=== PATIENT | male | born 1960 | race Caucasian/White ===

== ENCOUNTER 2024-09-27 09:48 | Inpatient (IN) | payer OTHER, MEDICAID ==
[~2024-09-27] VITALS: Ht 175.3 cm; Wt 85.7 kg
--- NOTE | 2024-09-27 10:45 | ED.PDOC ---
History of Present Illness HPI Comments 64-year-old male with PMHx HIV, HTN brought in by EMS presents with a chief complaint of hematoma to right knee s/p fall injury with associated muscle pain. Patient states that he was walking to get a cookie from the kitchen and then "blacked out and fell onto my knees". Patient is now presenting with a hematoma and pain to his right knee. Patient states that he is normally able to walk unassisted. Chief Complaint: Fall Injury Time Seen by MD: 10:20 Primary Care Provider: KIRAN Cordero Notes: Medications, Allergies Allergies: Coded Allergies: Sulfamethoxazole w/Trimethoprim (Verified Allergy, Unknown, 01/25/19) Home Meds Unable to Obtain Active Prescriptions or Reported Meds Information Source: Patient Mode of Arrival: EMS Severity: Moderate Timing: Hours Duration: Since onset Prehospital treatment: Tool Grinding Technician Past Medical History PAST MEDICAL HISTORY: HIV, HTN Surgical History: PTCA Family History Family History: Reviewed,noncontributory to illness Social History Smoker: Non-Smoker Alcohol: Denies ETOH Use Drugs: Denies Drug Use Lives In: Home Constitutional: denies: chills, diaphoresis, fatigue, fever, malaise, sweats, weakness, others EENTM: denies: blurred vision, double vision, ear bleeding, ear discharge, ear drainage, ear pain, ear ringing, eye pain, eye redness, hearing loss, mouth pain, mouth swelling, nasal discharge, nose bleeding, nose congestion, nose pain, photophobia, tearing, throat pain, throat swelling, voice changes, others Respiratory: denies: cough, hemoptysis, orthopnea, SOB at rest, shortness of breath, SOB with excertion, stridor, wheezing, others Cardiovascular: denies: chest pain, dizzy spells, diaphoresis, Dyspnea on exertion, edema, irregular heart beat, left arm pain, lightheadedness, palpitations, PND, syncope, others Gastrointestinal: denies: abdomen distended, abdominal pain, blood streaked bowels, constipated, diarrhea, dysphagia, difficulty swallowing, hematemesis, melena, nausea, poor appetite, poor fluid intake, rectal bleeding, rectal pain, vomiting, others Genitourinary: denies: burning, dysuria, flank pain, frequency, hematuria, incontinence, penile discharge, penile sore, pain, testicle pain, testicle swelling, urgency, others Neurological: denies: dizziness, fainting, headache, left sided numbness, left sided weakness, numbness, paresthesia, pre-existing deficit, right sided numbness, right sided weakness, seizure, speech problems, tingling, tremors, weakness, others Musculoskeletal: reports: muscle pain; denies: back pain, gout, joint pain, joint swelling, muscle stiffness, neck pain, others Integumetry: reports: bruises; denies: change in color, change in hair/nails, dryness, laceration, lesions, lumps, rash, wounds, others Allergic/Immunocompromised: denies: Difficulty Healing, Frequent Infections, Hives, Itching, others Hematologic/Lymphatic: denies: anemia, blood clots, easy bleeding, easy bruising, swollen glands, others Endocrine: denies: excessive hunger, excessive sweating, excessive thirst, excessive urination, flushing, intolerance to cold, intolerance to heat, unexplained weight gain, unexplained weight loss, others Psychiatric: denies: anxiety, bipolar disorder, depression, hopeless, panic disorder, schizophrenia, sleepless, suicidal, others All Other Systems: Reviewed and Negative Physical Exam General Appearance: No Apparent Distress, Normal HEENT: Normal ENT Inspection, Pharynx Normal, TMs Normal Neck: Full Range of Motion, Non-Tender, Normal, Normal Inspection Respiratory: Chest Non-Tender, Lungs Clear, No Accessory Muscle Use, No Respiratory Distress, Normal Breath Sounds Cardiovascular: No Edema, No JVD, No Murmur, No Gallop, Normal Peripheral Pulses, Regular Rate/Rhythm Breast Exam: Deferred Gastrointestinal: No Organomegaly, Non Tender, No Pulsatile Mass, Normal Bowel Sounds, Soft Genitalia: Deferred Pelvic: Deferred Rectal: Deferred Extremities: No calf tenderness, Normal capillary refill, Normal range of motion, No pedal edema, Swelling (RIGHT KNEE WITH HEMATOMA) Musculoskeletal : Apperance: Normal Neurologic: Alert, community health director II-XII nml as Tested, No Motor Deficits, Normal Affect, Normal Mood, No Sensory Deficits Cerebellar Function: Normal Reflexes: Normal Skin: Dry, Normal Color, Warm Lymphatic: No Adenopathy Was a procedure done? Was a procedure done?: No Differential Dx Considerations may include: Differential diagnosis include fracture, dislocation of knee, sprain, strain, contusion, joint effusion, hemarthrosis, neurovascular injuries, compartment syndrome. Patient has significant bleeding of the patella due to a comminuted displaced fracture. However neurovascularly he is intact. I spoke to Orthopedics to consult. Patient will be admitted for pain control bleeding control and orthopedic evaluation. X-Ray, Labs, Meds, VS Vital Signs Date Time Temp Pulse Resp B/P (MAP) Pulse Ox O2 Delivery O2 Flow Rate FiO2 09/27/24 16:00 82 19 122/68 (86) 97 09/27/24 16:00 83 09/27/24 14:00 79 26 141/77 (98) 97 09/27/24 12:54 98.6 92 18 126/76 (93) 99 98.6 09/27/24 12:54 92 18 99 Room Air* 0 21 09/27/24 11:57 98.4 94 16 123/70 (87) 100 98.4 09/27/24 09:52 99.2 101 15 133/82 97 99.2 Lab Test 09/27/24 11:58 09/27/24 11:00 Range/Units Troponin I High Sensitivity 5 5 </=54 ng/L White Blood Count 16.6 H 4.4-10.8 10^3/uL Red Blood Count 3.35 L 4.5-5.90 10^6/uL Hemoglobin 10.5 L 13.5-17.5 g/dL Hematocrit 30.7 L 41.0-53.0 % Mean Corpuscular Volume 91.6 80.0-100.0 fL Mean Corpuscular Hemoglobin 31.4 28.0-32.0 pg Mean Corpuscular Hemoglobin Concent 34.2 32.0-36.0 g/dL Red Cell Distribution Width 14.1 11.8-14.3 % Platelet Count 194 140-450 10^3/uL Mean Platelet Volume 7.9 6.9-10.8 fL Neutrophils (%) (Auto) 69.9 37.0-80.0 % Lymphocytes (%) (Auto) 16.5 10.0-50.0 % Monocytes (%) (Auto) 13.3 H 0.0-12.0 % Eosinophils (%) (Auto) 0.1 0.0-7.0 % Basophils (%) (Auto) 0.2 0.0-2.0 % Neutrophils # (Auto) 11.6 H 1.6-8.6 10 ^3/uL Lymphocytes # (Auto) 2.7 0.4-5.4 10 ^3/uL Monocytes # (Auto) 2.2 H 0-1.3 10 ^3/uL Eosinophils # (Auto) 0 0-0.8 10 ^3/uL Basophils # (Auto) 0 0-0.2 10 ^3/uL Nucleated Red Blood Cells 0.0 % Prothrombin Time 10.6 9.3-11.8 sec Prothrombin Time INR 1.00 0.9-1.15 Activated Partial Thromboplast Time 24.5 24.5-34.5 SEC Sodium Level 136 136-145 mmol/L Potassium Level 4.0 3.5-5.1 mmol/L Chloride Level 105 98-107 mmol/L Carbon Dioxide Level 19 L 20-31 mmol/L Anion Gap 12 5-15 Blood Urea Nitrogen 28 H 9-23 mg/dL Creatinine 1.49 H 0.700-1.30 mg/dL Glomerular Filtration Rate Calc 51 >90 mL/min BUN/Creatinine Ratio 18.8 10.0-20.0 Serum Glucose 154 H 74-106 mg/dL Calcium Level 9.4 8.7-10.4 mg/dL Current Medications Medications (Trade) Dose Ordered Sig/Kaitlin Route Start Time Stop Time Status Last Admin Acetaminophen/ Hydrocodone Bitart ([place] 10/325MG Tab) 1 tab ONCE ONCE PO 09/27/24 11:00 09/27/24 11:01 DC 09/27/24 11:09 Time of 1ST Reevaluation: 10:50 Reevaluation 1ST: Unchanged Patient Education/Counseling: Diagnosis, Treatment, Need For Follow Up Family Education/Counseling: No Family Present Comments i consulted orhto. and hospitalist Additional Information The following tests were ordered, and results were reviewed by me: CBC, CMP, TROPONIN, R KNEE X-RAY, R FEMUR X-RAY Additional Information was gathered from interviewing the following independent historians: EMS/[employer] I reviewed and agreed with the following test results read by other providers: RADIOLOGIST I discussed treatment and results with medical personnel and: PATIENT Comprehensive systems review obtained and negative except for what is stated in the HPI. SEPSIS Sepsis Screen Date sepsis recognized/suspect: Sep 27, 2024 Time Sepsis recognized/suspect: 954 Recent Procedure: No On Antibiotic Therapy: No Respiratory Rate >20: No Heart Rate >90: Yes Temp<36 C (96.8 F) or >38.3 C: No SBP <90 or MAP <65 mmHG: No New Acute Mental Status Change: No Is the patient on CPAP, BIPAP,: No Physician Orders R Femur Xray (09/27/24 10:33) Continuous Ekg Monitoring 08,12,16,20,00,04 (09/27/24 10:33) Electrocardigram (09/27/24 10:33) Chest Xray 1 View (09/27/24 10:33) R Knee 4v Xray (09/27/24 10:33) Ct R Knee Wo Contrast (09/27/24 10:54) Apply Knee Immobilizer (09/27/24 15:35) * Orthopedic Consult (09/27/24 15:35) Vital Signs Date Time Temp Pulse Resp B/P (MAP) Pulse Ox O2 Delivery O2 Flow Rate FiO2 09/27/24 16:00 82 19 122/68 (86) 97 09/27/24 16:00 83 09/27/24 14:00 79 26 141/77 (98) 97 09/27/24 12:54 98.6 92 18 126/76 (93) 99 98.6 09/27/24 12:54 92 18 99 Room Air* 0 21 09/27/24 11:57 98.4 94 16 123/70 (87) 100 98.4 09/27/24 09:52 99.2 101 15 133/82 97 99.2 Laboratory Tests Test 09/27/24 11:00 White Blood Count 16.6 10^3/uL (4.4-10.8) H Medications Medications Dose Ordered Sig/Kaitlin Route Start Time Stop Time Status Last Admin Dose Admin Acetaminophen/ Hydrocodone Bitart 1 tab ONCE ONCE PO 09/27/24 11:00 09/27/24 11:01 DC 09/27/24 11:09 Departure 1 Departure Time of Disposition: 21:11 Impression: Primary Impression: Right patella fracture Qualified Codes: S82.041A - Displaced comminuted fracture of right patella, initial encounter for closed fracture Additional Impression: Hematoma Disposition: ADMITTED INPATIENT Admit to: Med Surg Condition: Stable e-Prescriptions Unable to Obtain Active Prescriptions or Reported Meds Critical Care Note Critical Care Time?: Yes (45 min-critical care time only) Critical care comment: Due to concerns for patients condition deteriorating, the care required my highest level of attention and readiness to intervene. I assessed the patient, reviewed the medical records, ordered the appropriate tests and treatments, then reassessed for results and responsiveness. I communicated with medical personnel and consultants and formulated a plan of care. Total critical care time excludes any procedures Stability Stability form required: No Heart Score Heart Score: Heart Score Response (Comments) Value History N/A 0 EKG N/A 0 Age N/A 0 Risk Factors N/A 0 Troponin N/A 0 Total 0 I personally scribed for TRINI PEREZ MD ([email or web address]) on 09/27/24 at 10:45. Electronically submitted by Chuckie Lawler ([email or web address]). TRINI PEREZ MD Sep 27, 2024 10:45
[2024-09-27] MEDS: HYDROcodone-ACET 10/325MG TAB PO ONE (11:09)
--- NOTE | 2024-09-27 11:19 | DVH ---
CHEST RADIOGRAPH Indication: syncope Technique: Single frontal view of the chest was obtained COMPARISON: None FINDINGS: Lines and Tubes: None Lungs: Clear Pleura: No effusion. No pneumothorax. Cardiomediastinal contours: Unremarkable Bones: Unremarkable IMPRESSION: No acute disease.
--- NOTE | 2024-09-27 11:20 | DVH ---
CLINICAL INDICATION: Pain TECHNIQUE: XY R KNEE 4V XRAY Comparison: None FINDINGS/IMPRESSION: : Comminuted and displaced fracture of the patella. Small joint effusion.
[2024-09-27 11:27] LABS: Hematocrit 30.7 % (41.0-53.0); Hemoglobin 10.5 g/dL (13.5-17.5); Mean Corpuscular Hemoglobin 31.4 pg (28.0-32.0); Mean Corpuscular Volume 91.6 fL (80.0-100.0); Nucleated Red Blood Cells % 0.0 %
[2024-09-27 11:30] LABS: Chloride 105 mmol/L (98-107); Potassium 4.0 mmol/L (3.5-5.1); Sodium 136 mmol/L (136-145)
[2024-09-27 11:31] LABS: Anion Gap 12 (5-15); Calcium 9.4 mg/dL (8.7-10.4)
[2024-09-27 11:34] LABS: Carbon Dioxide 19 mmol/L (20-31)
[2024-09-27 11:36] LABS: BUN/Creatinine Ratio 18.8 (10.0-20.0)
[2024-09-27 11:38] LABS: Blood Urea Nitrogen 28 mg/dL (9-23); Glucose 154 mg/dL (74-106)
[2024-09-27 11:41] LABS: INR 1.0 (0.9-1.15); Partial Thromboplastin Time 24.5 SEC (24.5-34.5); Prothrombin Time 10.6 sec (9.3-11.8)
[2024-09-27 12:54] VITALS: PULSE 92; RESP 18; O2SAT 99
--- NOTE | 2024-09-27 13:41 | DVH ---
EXAM: XY R FEMUR XRAY CLINICAL INDICATION: injury TECHNIQUE: XY R FEMUR XRAY. 3 c Comparison: None FINDINGS/IMPRESSION: Displaced comminuted mid right patellar pole fracture
--- NOTE | 2024-09-27 14:01 | DVH ---
CT CT R KNEE WO CONTRAST INDICATION: fracture EXAM DATE: 09/27/2024 01:15 PM COMPARISON: XY R KNEE 4V XRAY on DOS: 09/27/24 RADIATION DOSE: CTDIvol: 7.75 mGy, DLP: 263.28 mGy*cm PROCEDURE: Helical CT images were obtained of the right knee without intravenous contrast. Sagittal and coronal reconstructions are provided. ADDITIONAL IMAGES: None FINDINGS: BONES: Comminuted and displaced patella fracture with adjacent soft tissue hematoma and small joint e ffusion. JOINT SPACES: Small effusion. SOFT TISSUES: Small prepatellar hematoma. VESSELS: unremarkable. IMPRESSION: Comminuted and displaced patella fracture with adjacent soft tissue hematoma and small joint effusion .
[2024-09-27] MEDS ORDERED: DOCUSATE SOD 100 MG CAP PO PRN (16:30)
[2024-09-27] MEDS ORDERED: ACETAMINOPHEN 325 MG TAB PO PRN (16:30)
--- NOTE | 2024-09-27 16:41 | DVHHP2 ---
Admitting Diagnosis: Right knee pain History of Present Illness 64-year-old male with PMHx HIV, HTN brought in by EMS presents with a chief complaint of hematoma to right knee s/p fall injury with associated muscle pain. Patient states that he was walking to get a cookie from the kitchen and then "blacked out and fell onto my knees". Patient is now presenting with a hematoma and pain to his right knee. Patient states that he is normally able to walk unassisted. PAST MEDICAL HISTORY: HIV, HTN Surgical History: PTCA Family History Family History: Reviewed,noncontributory to illness Social History Smoker: Non-Smoker Alcohol: Denies ETOH Use Drugs: Denies Drug Use Lives In: Home Patient Family History: Patient reports no known family medical history. Allergies: Coded Allergies: Sulfamethoxazole w/Trimethoprim (Verified Allergy, Unknown, 01/25/19) Home Meds Unable to Obtain Active Prescriptions or Reported Meds Current Medications Current Medications Medications (Trade) Dose Ordered Sig/Kaitlin Route PRN Reason Start Time Stop Time Status Last Admin Sodium Chloride (Saline Lock Ns) 10 ml Q8HR IV 09/27/24 22:00 UNV Docusate Sodium (Colace Capsule) 100 mg BIDPRN PRN PO FOR CONSTIPATION 09/27/24 16:30 UNV Acetaminophen (Tylenol Tablet) 650 mg Q6HP PRN PO PAIN SCALE 1-3 OR TEMP>100.4 09/27/24 16:30 UNV Acetaminophen/ Hydrocodone Bitart ([place] 5/325MG Tab) 1 tab Q4HP PRN PO MODERATE PAIN (4-6 PAIN SCALE) 09/27/24 16:30 UNV Hydromorphone HCl (Dilaudid Injection) 0.5 mg Q4HP PRN IV SEVERE PAIN (7-10 PAIN SCALE) 09/27/24 16:30 UNV Cefazolin Sodium 50 ml @ 100 mls/hr Q8HR IV 09/27/24 22:00 UNV Vital Signs Vital Signs Date Time Temp Pulse Resp B/P (MAP) Pulse Ox O2 Delivery O2 Flow Rate FiO2 09/27/24 16:00 82 19 122/68 (86) 97 09/27/24 12:54 98.6 98.6 09/27/24 12:54 Room Air* 0 21 Physical Exam Generally 64 years old male, well nourished well developed. Mild distress HEENT-atraumatic, normocephalic Heart-regular rate and rhythm Lungs clear to auscultate Soft nontender nondistended Musculoskeletal-right knee ecchymosis, pain to tender, axillary stent due to pain. No cyanosis Neuro-AO x3, no focal deficits SEPSIS Sepsis Screen Date sepsis recognized/suspect: Sep 27, 2024 Time Sepsis recognized/suspect: 954 Recent Procedure: No On Antibiotic Therapy: No Respiratory Rate >20: No Heart Rate >90: Yes Temp<36 C (96.8 F) or >38.3 C: No SBP <90 or MAP <65 mmHG: No New Acute Mental Status Change: No Is the patient on CPAP, BIPAP,: No Physician Orders R Femur Xray (09/27/24 10:33) Continuous Ekg Monitoring 08,12,16,20,00,04 (09/27/24 10:33) Electrocardigram (09/27/24 10:33) Chest Xray 1 View (09/27/24 10:33) R Knee 4v Xray (09/27/24 10:33) Ct R Knee Wo Contrast (09/27/24 10:54) Apply Knee Immobilizer (09/27/24 15:35) * Orthopedic Consult (09/27/24 15:35) Lactated Ringer's (09/28/24 00:00) Regular Diet (09/27/24 Dinner) Admit (09/27/24 16:27) Code Status (09/27/24 16:) Vital Signs .PER UNIT PROTOCOL (09/27/24 16:27) Review Orders With Adm.Md (09/27/24 16:27) Encourage Activity As Tolerate (09/27/24 16:27) Sodium Chloride Lock (Saline Lock Ns) (09/27/24 22:00) Docusate Sodium Capsule (Colace Capsule) (09/27/24 16:30) Acetaminophen Tablet (Tylenol Tablet) (09/27/24 16:30) Notify Md Of Changes From Base (09/27/24 16:27) Advance Directive (09/27/24 16:27) Patient Condition (09/27/24 16:27) Allergies (09/27/24 16:27) Hydrocodone-Acet 5/325mg Tab ([place] 5/32 (09/27/24 16:30) Hydromorphone Injection (Dilaudid Inject (09/27/24 16:30) Complete Blood Count (09/28/24 05:00) Complete Blood Count (09/29/24 05:00) Complete Blood Count (09/30/24 05:00) Complete Blood Count (10/01/24 05:00) Complete Blood Count (10/02/24 05:00) Comprehensive Metabolic Panel (09/28/24 05:00) Comprehensive Metabolic Panel (09/29/24 05:00) Comprehensive Metabolic Panel (09/30/24 05:00) Comprehensive Metabolic Panel (10/01/24 05:00) Comprehensive Metabolic Panel (10/02/24 05:00) Cefazolin 1gm/50ml ([place]ce[place]) (09/27/24 22:00) Vital Signs Date Time Temp Pulse Resp B/P (MAP) Pulse Ox O2 Delivery O2 Flow Rate FiO2 09/27/24 16:00 82 19 122/68 (86) 97 09/27/24 14:00 79 26 141/77 (98) 97 09/27/24 12:54 98.6 92 18 126/76 (93) 99 98.6 09/27/24 12:54 92 18 99 Room Air* 0 21 09/27/24 11:57 98.4 94 16 123/70 (87) 100 98.4 09/27/24 09:52 99.2 101 15 133/82 97 99.2 Laboratory Tests Test 09/27/24 11:00 White Blood Count 16.6 10^3/uL (4.4-10.8) H Medications Medications Dose Ordered Sig/Kaitlin Route Start Time Stop Time Status Last Admin Dose Admin Acetaminophen/ Hydrocodone Bitart 1 tab ONCE ONCE PO 09/27/24 11:00 09/27/24 11:01 DC 09/27/24 11:09 Results Labs Test 09/27/24 11:58 09/27/24 11:00 Range/Units Troponin I High Sensitivity 5 </=54 ng/L White Blood Count 16.6 H 4.4-10.8 10^3/uL Red Blood Count 3.35 L 4.5-5.90 10^6/uL Hemoglobin 10.5 L 13.5-17.5 g/dL Hematocrit 30.7 L 41.0-53.0 % Mean Corpuscular Volume 91.6 80.0-100.0 fL Mean Corpuscular Hemoglobin 31.4 28.0-32.0 pg Mean Corpuscular Hemoglobin Concent 34.2 32.0-36.0 g/dL Red Cell Distribution Width 14.1 11.8-14.3 % Platelet Count 194 140-450 10^3/uL Mean Platelet Volume 7.9 6.9-10.8 fL Neutrophils (%) (Auto) 69.9 37.0-80.0 % Lymphocytes (%) (Auto) 16.5 10.0-50.0 % Monocytes (%) (Auto) 13.3 H 0.0-12.0 % Eosinophils (%) (Auto) 0.1 0.0-7.0 % Basophils (%) (Auto) 0.2 0.0-2.0 % Neutrophils # (Auto) 11.6 H 1.6-8.6 10 ^3/uL Lymphocytes # (Auto) 2.7 0.4-5.4 10 ^3/uL Monocytes # (Auto) 2.2 H 0-1.3 10 ^3/uL Eosinophils # (Auto) 0 0-0.8 10 ^3/uL Basophils # (Auto) 0 0-0.2 10 ^3/uL Nucleated Red Blood Cells 0.0 % Prothrombin Time 10.6 9.3-11.8 sec Prothrombin Time INR 1.00 0.9-1.15 Activated Partial Thromboplast Time 24.5 24.5-34.5 SEC Sodium Level 136 136-145 mmol/L Potassium Level 4.0 3.5-5.1 mmol/L Chloride Level 105 98-107 mmol/L Carbon Dioxide Level 19 L 20-31 mmol/L Anion Gap 12 5-15 Blood Urea Nitrogen 28 H 9-23 mg/dL Creatinine 1.49 H 0.700-1.30 mg/dL Glomerular Filtration Rate Calc 51 >90 mL/min BUN/Creatinine Ratio 18.8 10.0-20.0 Serum Glucose 154 H 74-106 mg/dL Calcium Level 9.4 8.7-10.4 mg/dL Primary Diagnosis Fall mechanical, Right knee fracture Normocytic anemia CHIDI on CKD Leukocytosis likely reactive Plan Ancef 1 g q.8h for possible infection and possible procedure Orthopedic surgery consult in ED pending procedure NPO after midnight IV fluids Trend renal function Trend WBC PPI for GI prophylaxis Full code SCD for DVT prophylaxis Plan discussed with: Patient Problems List: (1) Right patella fracture Status: Acute Date of Service: Sep 27, 2024 Billing Provider: CIRA BEASLEY MD Common Visit Codes: 39361-[id number] INP/OBS CARE (HIGH) CIRA BEASLEY MD Sep 27, 2024 16:41
--- NOTE | 2024-09-27 19:35 | DVHINCON2 ---
Consult Note Consult Consult Note history of Present Illness: The patient is a 64-year-old male who presented to the emergency room after sustaining a ground-level fall with direct impact to his right knee. He reports that he was walking to the kitchen to get a cookie when he suddenly blacked out and fell. The patient has been experiencing extensive swelling and hematoma formation over the right knee since the fall. He denies numbness, tingling, or open wounds. Pain is worsened with weight-bearing and knee movement. Past medical history is significant for HIV (on treatment) and hypertension (on medication). --- Exam: Inspection: Extensive swelling and hematoma over the anterior right knee. Skin intact, no open wounds. Palpation: Tenderness to palpation over the patella. Hematoma is fluctuant. Range of Motion: Pain with both active and passive motion, limited due to swelling. Special Tests : Positive patellar compression test (pain with compression). Positive direct palpation tenderness over the patella. Pain with straight leg raise, unable to perform against resistance due to pain. Extensor mechanism weakness due to pain. Neurovascular: Intact sensation and motor function in right lower extremity. Distal pulses palpable and intact. --- Imaging: right knee: Comminuted and displaced patella fracture with adjacent soft tissue hematoma and small joint effusion. --- Assessment: 1. Right knee traumatic hematoma . 2. right patella fracture, 3. Fall with syncope 4. History of HIV on treatment . 5. Hypertension . --- Plan: ER has admitted patient for pain control and further eval Ortho recs for right knee patella fracture: Plan to take patient for surgery if knee swelling improves by wednesday09/29/2024, Place order for NPO Midnight for surgery on 09/29/2024 Place order for obtain consent Open reduction internal fixation right knee patella fracture patient to be cleared by ID for hx of HIV CARDIAC CLEARANCE Apply straight leg immobilization (knee immobilizer in extension). Knee brace to be placed by pulmonology technician Bjorn by tomorrow morning. Once brace is placed, patient may ambulate with weight-bearing as tolerated. Monitor swelling and hematoma. If swelling does not improve, will consider orthopedic clinic follow-up for possible aspiration or further intervention. Continue home HIV and antihypertensive medications per primary team. Ice and elevation of right knee recommended. Please contact Ortho for any further questions or concerns Plan discussed with: Patient, Other (bedside nurse) Visit Coding Surgery Date of Service if different f: Sep 27, 2024 Billing Provider: MARCIA VELASQUEZ Surgery Visit Codes: 30813 - INP CONSULT <55 MIN MARCIA VELASQUEZ Sep 27, 2024 19:35
[2024-09-27 20:48] VITALS: BP 123/73; PULSE 94; RESP 20; TEMP 98.8; O2SAT 96; O2SAT 97
[2024-09-27 20:55] VITALS: BP 123/73; PULSE 94; RESP 20; TEMP 98.8; O2SAT 96
[2024-09-27] MEDS: SODIUM CHLOR 0.9% PF (SALINE LOCK) 10ML VIAL/SYR IV SCH (22:18)
[2024-09-27] MEDS: ceFAZolin 1GM/50ML 50 ML IV SCH (22:18)
[2024-09-28] VITALS (7 sets, daily range): BP systolic 98–131; BP diastolic 59–68; PULSE 89–105; RESP 16–20; TEMP 97.6–99.2; O2SAT 96–99
[2024-09-28] MEDS: LACTATED RINGER'S 1,000 ML IV ONE
[2024-09-28 08:17] LABS: Alanine Aminotransferase 20 U/L (7-40); Alkaline Phosphatase 67 U/L (46-116); Anion Gap 11 (5-15); BUN/Creatinine Ratio 25.0 (10.0-20.0); Calcium 8.9 mg/dL (8.7-10.4); Carbon Dioxide 20 mmol/L (20-31); Chloride 106 mmol/L (98-107); Potassium 4.1 mmol/L (3.5-5.1); Sodium 137 mmol/L (136-145); Total Protein 6.1 g/dL (5.7-8.2)
[2024-09-28 08:18] LABS: Albumin 4.0 g/dL (3.2-4.8); Bilirubin, Total 0.6 mg/dL (0.2-1.0)
[2024-09-28 08:25] LABS: Blood Urea Nitrogen 25 mg/dL (9-23); Glucose 115 mg/dL (74-106)
[2024-09-28 08:27] LABS: Hematocrit 27.7 % (41.0-53.0); Hemoglobin 9.3 g/dL (13.5-17.5); Mean Corpuscular Hemoglobin 30.6 pg (28.0-32.0); Mean Corpuscular Volume 91.2 fL (80.0-100.0); Nucleated Red Blood Cells % 0.1 %
--- NOTE | 2024-09-28 08:29 | ECG ---
[facility] Test Date: 2024-09-28 Test Time: 08:26:49 Pat Name: ANA CRISTINA GODFREY Department: Room: 0291 B Gender: M Flag Signalman: MANASA : 1960 Requested By: CIRA BEASLEY Order Number: [id number] Reading MD: Avila Jay Measurements Intervals [place] Rate: 85 P: 48 AR: 147 QRS: 68 QRSD: 91 T: 60 QT: 361 QTc: 430 Interpretive Statements Sinus rhythm Low voltage, precordial leads Electronically Signed On 10-03-2024 13:17:02 PDT by Avila Jay Please click the below link to view image of tracing.
--- NOTE | 2024-09-28 10:22 | DVHINCON2 ---
Date Seen: Sep 28, 2024 Referring Physician MD Adelso Reason for Consultation Cardiac risk stratification History of Present Illness This is a 64-year-old male patient who presents to emergency room status post mechanical fall at home. Cardiology has been consulted at this time for cardiac risk stratification. Imaging has revealed a displaced comminuted mid right patellar pole fracture. Initial twelve lead electrocardiogram reveals normal sinus rhythm without any significant ST segment changes. The patient denies any cardiac symptoms such as chest pain, shortness of breath, or palpitations. Troponin levels have been negative. Significant past medical history includes coronary artery disease status post PTCA x 2 ALFONSO (on ASA), hypertension, dyslipidemia, and HIV. 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 Past Medical History Past medical history reviewed. No other significant than mentioned above. Past Surgical History PTCA times two ALFONSO approximately five years ago Family History: Patient reports no known family medical history. Family History Family history reviewed. Social History Patient has a five pack-year history, quit smoking approximately 30 years ago Denies illicit drug use Denies any alcohol use Allergies: Coded Allergies: Sulfamethoxazole w/Trimethoprim (Verified Allergy, Unknown, 01/25/19) Home Meds Unable to Obtain Active Prescriptions or Reported Meds Home Meds Home medications reviewed. Current Medications Current Medications Medications (Trade) Dose Ordered Sig/Kaitlin Route PRN Reason Start Time Stop Time Status Last Admin Sodium Chloride (Saline Lock Ns) 10 ml Q8HR IV 09/27/24 22:00 09/28/24 05:45 Docusate Sodium (Colace Capsule) 100 mg BIDPRN PRN PO FOR CONSTIPATION 09/27/24 16:30 Acetaminophen (Tylenol Tablet) 650 mg Q6HP PRN PO PAIN SCALE 1-3 OR TEMP>100.4 09/27/24 16:30 Acetaminophen/ Hydrocodone Bitart ([place] 5/325MG Tab) 1 tab Q4HP PRN PO MODERATE PAIN (4-6 PAIN SCALE) 09/27/24 16:30 Hydromorphone HCl (Dilaudid Injection) 0.5 mg Q4HP PRN IV SEVERE PAIN (7-10 PAIN SCALE) 09/27/24 16:30 Cefazolin Sodium 50 ml @ 100 mls/hr Q8HR IV 09/27/24 22:00 09/28/24 05:34 Review of Systems Constitutional: No symptom reported Ears, Nose, & Throat: No symptom reported Eyes: No symptom reported Neurological: No symptoms reported Pulmonary/Respiratory: No symptoms reported Cardiovascular: No symptom reported Gastrointestinal: No symptom reported Genitourinary: No symptom reported Musculoskeletal: Bilateral knee pain Skin: No symptom reported Psychiatric: No symptom reported Endocrine: No symptom reported Hematologic/Lymphatic: No symptom reported Vital Signs Vital Signs Date Time Temp Pulse Resp B/P (MAP) Pulse Ox O2 Delivery O2 Flow Rate FiO2 09/28/24 08:00 89 18 99 Room Air* 0 21 09/28/24 05:00 98.2 101/65 (77) 98.2 Physical Exam General Appearance: Cooperative. Well-developed. Well-nourished. No acute distress. Pulmonary/Respiratory: Clear, bilateral breaths sounds. Cardiovascular/Chest: Regular rate and rhythm. Peripheral Pulses: 2+ Radial (R). 2+ Radial (L). 2+ Pedal (R). 2+ Pedal (L) Abdominal Exam: Normal bowel sounds. Ankle Exam: Negative ankle edema Lower extremities: Negative lower extremity edema Neuro/Mental Status: A/OX4, coherent. Thoughts/Psych: Normal thought pattern. Appropriate mood and affect. Good judgment and insight. Appearance: No acute distress. Skin Exam: Right knee ecchymosis. Skin warm and dry Labs/Diagnostic Data Labs Test 09/28/24 07:04 09/27/24 11:58 09/27/24 11:00 Range/Units White Blood Count 9.0 # 4.4-10.8 10^3/uL Red Blood Count 3.04 L 4.5-5.90 10^6/uL Hemoglobin 9.3 L 13.5-17.5 g/dL Hematocrit 27.7 L 41.0-53.0 % Mean Corpuscular Volume 91.2 80.0-100.0 fL Mean Corpuscular Hemoglobin 30.6 28.0-32.0 pg Mean Corpuscular Hemoglobin Concent 33.5 32.0-36.0 g/dL Red Cell Distribution Width 14.2 11.8-14.3 % Platelet Count 176 140-450 10^3/uL Mean Platelet Volume 7.9 6.9-10.8 fL Neutrophils (%) (Auto) 65.5 37.0-80.0 % Lymphocytes (%) (Auto) 19.0 10.0-50.0 % Monocytes (%) (Auto) 14.0 H 0.0-12.0 % Eosinophils (%) (Auto) 0.9 0.0-7.0 % Basophils (%) (Auto) 0.6 0.0-2.0 % Neutrophils # (Auto) 5.9 1.6-8.6 10 ^3/uL Lymphocytes # (Auto) 1.7 0.4-5.4 10 ^3/uL Monocytes # (Auto) 1.3 0-1.3 10 ^3/uL Eosinophils # (Auto) 0.1 0-0.8 10 ^3/uL Basophils # (Auto) 0.1 0-0.2 10 ^3/uL Nucleated Red Blood Cells 0.1 % Sodium Level 137 136-145 mmol/L Potassium Level 4.1 3.5-5.1 mmol/L Chloride Level 106 98-107 mmol/L Carbon Dioxide Level 20 20-31 mmol/L Anion Gap 11 5-15 Blood Urea Nitrogen 25 H 9-23 mg/dL Creatinine 1.00 0.700-1.30 mg/dL Glomerular Filtration Rate Calc 83 >90 mL/min BUN/Creatinine Ratio 25.0 H 10.0-20.0 Serum Glucose 115 H 74-106 mg/dL Calcium Level 8.9 8.7-10.4 mg/dL Total Bilirubin 0.6 0.2-1.0 mg/dL Aspartate Amino Transferase (AST) 59 H 13-40 U/L Alanine Aminotransferase (ALT) 20 7-40 U/L Alkaline Phosphatase 67 46-116 U/L Total Protein 6.1 5.7-8.2 g/dL Albumin 4.0 3.2-4.8 g/dL Troponin I High Sensitivity 5 </=54 ng/L Prothrombin Time 10.6 9.3-11.8 sec Prothrombin Time INR 1.00 0.9-1.15 Activated Partial Thromboplast Time 24.5 24.5-34.5 SEC Assessment Preprocedural cardiovascular examination Acute right patellar pole fracture Coronary artery disease status post PTCA x 2 ALFONSO (on ASA) Hypertension Dyslipidemia HIV Plan/Recommendation We will continue with the following plan/recommendations (Dr. Lowe): Transthoracic echocardiogram reveals an EF of 60% with normal valves. A chest x-ray done on this admission reveals no acute disease. Revised Cardiac Risk Index (Adelso criteria): 1 point (1.1% risk of major cardiac event). The patient has no underlying history of congestive heart failure. He does mention a history of coronary artery disease in which he has two drug-eluting stents (placed over 5 years ago per patient). He should continue with single antiplatelet therapy and lipid-lowering agent. Prior to this admission, the patient reports a good functional capacity. Per Cardiology standpoint, the patient is at an acceptable risk for moderate risk surgery. There is no additional cardiac workup indicated prior to surgery. Thank you for allowing us to care for this patient. Please call with any questions or concerns. Critical care time spent: 44 minutes This medical document was created using an electronic medical record system with voice recognition software and computerized dictation system. Although this document has been carefully reviewed, there might still be some phonetic and typographical errors. Occasional wrong-word or ``sound-alike substitutions may have occurred due to the inherent limitations of voice recognition software. These areas are purely typographical due to imperfections of the software programs and do not reflect any compromise in the patient's medical care. Please read the chart carefully and recognize, using context, where these substitutions have occurred. Plan discussed with: Patient NYHA Physical activity limitations: NA Date of Service: Sep 28, 2024 Billing Provider: SAMIR FAN Cardiology Common Codes: 33725-[id number] INP/OBS CARE (High) Cardiology Consultation Codes: 11056-[id number] CONSULT <45MIN SAMIR FAN Sep 28, 2024 10:22
[2024-09-28] MEDS: HYDROcodone-ACET 5/325MG TAB PO PRN (11:19)
--- NOTE | 2024-09-28 15:56 | DVHSR ---
APPROVED REPORT EXAM: Two-dimensional and M-mode echocardiogram with Doppler and color Doppler. Blood Pressure: 101/65 mmHg INDICATION Eval cardiac function RISK FACTORS Height: 69, Weight: 191 DIMENSIONS LVDd (3.8-5.7cm)LA (2D)4.3 (1.9-4.0cm)Aortic Root3.6 (2.0-3.7cm) LVDs (2.5-4.0cm)LA (MM) (1.9-4.0cm)Aortic Cusp Exc2.0 (1.5-2.0cm) EF (%) 73.0 (55-70%)Rt. Atrium5.2 (1.9-4.0cm)Asc. Aorta cm Mitral Valve MitralMitral Stenosis E wave0.78m/sMV Mean GR.mmHg A wave0.70m/sMV Peak GR.mmHg E/A ratio1.12D MVAcm2 DECEL [id number] 1/2 [id number] IVRTmsDop MVA4.75cm2 Aortic Valve Aortic ValveAortic Stenosis V11.22m/Penelope Mean GR.4mmHg V21.36m/Penelope Peak GR.7mmHg LVOT Diameter2.3 (1.8-2.4cm)Doppler AVA3.73cm2 Tricuspid Valve TR Velocity2.66m/s [id number] Other Information Technically limited study due to body habitus and patient position. Patient was laying flat on his b ack during study. Conclusion Technically good study. Difficult acoustic windows. Off axis views. Aortic root enlargement. Left atrial enlargement with concentric LVH. Valves are normal. EF of 60% with normal RV function. Dopplers unremarkable. No pericardial effusion masses or vegetations.
--- NOTE | 2024-09-28 18:54 | DVHINCON2 ---
Date of service: Sep 28, 2024 Family History: Patient reports no known family medical history. Allergies: Coded Allergies: Sulfamethoxazole w/Trimethoprim (Verified Allergy, Unknown, 01/25/19) Home Meds Unable to Obtain Active Prescriptions or Reported Meds Current Medications Current Medications Medications (Trade) Dose Ordered Sig/Kaitlin Route PRN Reason Start Time Stop Time Status Last Admin Sodium Chloride (Saline Lock Ns) 10 ml Q8HR IV 09/27/24 22:00 09/28/24 14:00 Cefazolin Sodium 50 ml @ 100 mls/hr Q8HR IV 09/27/24 22:00 09/28/24 14:00 Atorvastatin Calcium (Lipitor) 40 mg HS PO 09/28/24 22:00 Vital Signs Vital Signs Date Time Temp Pulse Resp B/P (MAP) Pulse Ox O2 Delivery O2 Flow Rate FiO2 09/28/24 17:00 97.9 105 17 120/67 (84) 98 97.9 09/28/24 08:00 Room Air* 0 21 Labs/Diagnostic Data Labs Test 09/28/24 07:04 09/27/24 11:58 09/27/24 11:00 Range/Units White Blood Count 9.0 # 4.4-10.8 10^3/uL Red Blood Count 3.04 L 4.5-5.90 10^6/uL Hemoglobin 9.3 L 13.5-17.5 g/dL Hematocrit 27.7 L 41.0-53.0 % Mean Corpuscular Volume 91.2 80.0-100.0 fL Mean Corpuscular Hemoglobin 30.6 28.0-32.0 pg Mean Corpuscular Hemoglobin Concent 33.5 32.0-36.0 g/dL Red Cell Distribution Width 14.2 11.8-14.3 % Platelet Count 176 140-450 10^3/uL Mean Platelet Volume 7.9 6.9-10.8 fL Neutrophils (%) (Auto) 65.5 37.0-80.0 % Lymphocytes (%) (Auto) 19.0 10.0-50.0 % Monocytes (%) (Auto) 14.0 H 0.0-12.0 % Eosinophils (%) (Auto) 0.9 0.0-7.0 % Basophils (%) (Auto) 0.6 0.0-2.0 % Neutrophils # (Auto) 5.9 1.6-8.6 10 ^3/uL Lymphocytes # (Auto) 1.7 0.4-5.4 10 ^3/uL Monocytes # (Auto) 1.3 0-1.3 10 ^3/uL Eosinophils # (Auto) 0.1 0-0.8 10 ^3/uL Basophils # (Auto) 0.1 0-0.2 10 ^3/uL Nucleated Red Blood Cells 0.1 % Sodium Level 137 136-145 mmol/L Potassium Level 4.1 3.5-5.1 mmol/L Chloride Level 106 98-107 mmol/L Carbon Dioxide Level 20 20-31 mmol/L Anion Gap 11 5-15 Blood Urea Nitrogen 25 H 9-23 mg/dL Creatinine 1.00 0.700-1.30 mg/dL Glomerular Filtration Rate Calc 83 >90 mL/min BUN/Creatinine Ratio 25.0 H 10.0-20.0 Serum Glucose 115 H 74-106 mg/dL Calcium Level 8.9 8.7-10.4 mg/dL Total Bilirubin 0.6 0.2-1.0 mg/dL Aspartate Amino Transferase (AST) 59 H 13-40 U/L Alanine Aminotransferase (ALT) 20 7-40 U/L Alkaline Phosphatase 67 46-116 U/L Total Protein 6.1 5.7-8.2 g/dL Albumin 4.0 3.2-4.8 g/dL Troponin I High Sensitivity 5 </=54 ng/L Prothrombin Time 10.6 9.3-11.8 sec Prothrombin Time INR 1.00 0.9-1.15 Activated Partial Thromboplast Time 24.5 24.5-34.5 SEC Problems(with codes): (1) HIV (human immunodeficiency virus infection) (2) NSTEMI (non-ST elevated myocardial infarction) (3) Obesity (4) Hematoma (5) Right patella fracture Plan/Recommendation ASSESSMENT AND PLAN: ID Problem List: \-- HIV \-- Hypertension \-- Right knee hematoma, status post fall with associated muscle pain and syncope \-- History of percutaneous coronary artery intervention Assessment This is a 64 y.o. male with a past medical history significant for HIV and hypertension, presenting with a right knee hematoma after a fall. He reports muscle pain and syncope at the time of the event, etiology of syncope unclear. Patient denies IV drug use; negative tobacco and alcohol history. He is allergic to Bactrim. Labs notable for leukocytosis (WBC 16.6), hemoglobin 10.5, platelet count 194. Sodium and other labs as reviewed, with creatinine 1.49 and BUN 28. Awaiting further hepatitis C and B testing (antigen/antibody). External labs confirm HIV medication compliance (Odefsey), and recent evaluation by his outpatient HIV provider, Dr. Vicki Craft, shows adequate immune function, not prohibitive for surgery. Awaiting 24-hour records acquisition from HIV provider to finalize clearance. Patient may continue Odefsey while inpatient unless NPO pre-/post-operatively; continue other home medications. Plan: \-- Continue Odefsey while inpatient, hold if NPO for surgery as indicated \-- Continue home medications: metoprolol, venlafaxine, rosuvastatin, [place], hydromorphone as prescribed \-- Infectious disease clearance conditionally pending receipt of HIV provider records (within 24 hours); confirm adequate immune function for alexi-procedural management \-- Await hepatitis B/C testing results \-- Monitor right knee hematoma and observe for signs of infection or expansion \-- Recommend ongoing outpatient HIV care with Dr. Craft post-discharge Isolation Precautions: standard \*Assessment and plan was discussed with the patient as written above \*Plan is subject to change pending incorporation of new incoming information/diagnostics. Updates may be added as addendum at the bottom (OR TOP) of this note Thank you for interesting consult. ID will continue to follow. Please contact Infectious disease for any questions or concerns. Conner Perez M.D. [facility] Ph: ? Teams text: [email or web address] Electronically signed by: Conner Perez MD, 09/28/2024 \ History: The patient's chart and medications were reviewed in detail and the patient was seen and examined. History obtained from: patient Mr. Dickerson is a 64 y.o. male with a history of HIV, hypertension, and prior percutaneous coronary artery intervention, presenting after a mechanical fall resulting in right knee hematoma and muscle pain. He reports a blackout event with fall onto knees, etiology of syncope unknown. Denies tobacco, alcohol, and IV drug use. Home medications include Odefsey, metoprolol, venlafaxine, rosuvastatin, [place], and hydromorphone. Last Odefsey refill in May. Compliance confirmed on external labs; followed as outpatient by Dr. Vicki Craft. Review of Systems: A complete 10 system review of systems was completed and negative except as noted in the HPI or here. ROS: -CONSTITUTIONAL: Denies weight loss, fever, and chills. -HEENT: Denies changes in vision and hearing. -RESPIRATORY: Denies shortness of breath and cough. -CV: Denies palpitations and chest pain. -GI: Denies abdominal pain, nausea, vomiting, and diarrhea. -: Denies dysuria and urinary frequency. -MSK: Reports right knee pain and hematoma after fall. Denies other myalgia or j oint pain. -SKIN: Denies rash and pruritus. -NEUROLOGICAL: Denies headache and syncope since presenting event. -PSYCHIATRIC: Denies recent changes in mood, anxiety, or depression. Past Medical History: HIV Hypertension History of percutaneous coronary artery intervention Past Surgical History: History reviewed. No additional pertinent surgical history provided. Home Medications: Prior to Admission medications Medication Sig Odefsey (emtricitabine/rilpivirine/tenofovir alafenamide) dose and frequency per home regimen Metoprolol as prescribed Venlafaxine as prescribed Rosuvastatin as prescribed [place] (hydrocodone-acetaminophen) as prescribed Hydromorphone as prescribed Allergies: Allergic to Bactrim (sulfamethoxazole/trimethoprim) Family History: Not provided in transcript. Family Status: Not provided in transcript. Social History: Tobacco Use: Denies Alcohol Use: Denies IV Drug Use: Denies Other substances: Not discussed Sexual Activity: Not discussed Socioeconomic history: Not discussed Social Determinants of Health: Not provided in transcript. Objective: Vital Signs on Arrival: Temp: 96.8 F BP: 122/68 Pulse: 82 Resp: 19 SpO2: 97% on room air Most Recent Vital Signs: Not further specified in transcript Admission Weight: Not provided Physical Exam: General: NAD Neck: Supple. No masses. HEENT: PERRL. Normal lids and conjunctiva. Moist mucous membranes. Oropharynx without lesions, exudates or excessive erythema. Normal appearance of the external aspects of the nose and ears. Heart: Regular rhythm, normal rate. No murmur. No lower extremity edema. Lungs: Normal respiratory effort. Clear to auscultation bilaterally. No wheezes. No crackles. Abdomen: Soft. Non-tender. Non-distended. No masses or abdominal hernia. Msk: Right knee: Ecchymosis and tenderness present, status post fall. No digital cyanosis. Normal strength and tone in all 4 limbs. Skin: Warm and dry, no rashes. Neuro: Alert. No facial droop or slurred speech. Extra-ocular movements intact. Sensation intact to soft touch in all 4 limbs. Psych: Appropriate mood. Full affect. Oriented to person, place, time, and situation. Lines: Not specified in transcript. Diagnostic Studies: Available diagnostic studies were reviewed personally. Significant relevant results and findings are outlined below or addressed in the Assessment and Plan above. Pertinent Laboratory Studies: WBC: 16.6 Hemoglobin: 10.5 Platelets: 194 Creatinine: 1.49 BUN: 28 Imaging: Not provided in transcript. Awaiting hepatitis B and C testing. Electronically signed by: Conner Perez MD, 09/28/2024 Plan discussed with: Patient CONNER PEREZ MD Sep 28, 2024 18:54
--- NOTE | 2024-09-28 19:28 | DVH ---
EXAM: XY L KNEE 2V XRAY HISTORY: fall trauma and swelline of the left knee COMPARISON: CT CT R KNEE WO CONTRAST on DOS: 09/27/24, XY R KNEE 4V XRAY on DOS: 09/27/24 TECHNIQUE: AP and lateral views of the left knee were performed. FINDINGS: The bones are demineralized. There is minimally displaced fracture involving the lateral femoral condyle. Moderate joint effusion . Soft tissue swelling. IMPRESSION: 1. Acute lateral femoral condyle fracture
--- NOTE | 2024-09-28 19:32 | DVHPNRES ---
Progress Note Date Seen: Sep 28, 2024 Resident Creating Document: KRISTINE TIMMONS Medical Necessity Reason Pt with a Central, PICC or Fol: No Subjective Review of Systems 64-year-old male patient with history of hypertension and HIV presented to the hospital with complaints of pain and swelling and bruising in the right knee and swelling in the left knee. Patient says he was at his home the when he suddenly felt his legs gave up and he fell down on the floor. He had a loss of consciousness post 2 seconds according to the patient. The patient could not stand up or get to his phone for 2 days and was found in his home on the floor. On admission x-ray and CT was done on the right knee which showed comminuted displaced patellar fracture. EKG showed sinus rhythm. Patient is scheduled for surgery by Orthopedics tomorrow PMHx:hypertension and HIV Social history: 5 pack-year smoking history, denies alcohol or drug abuse Allergic history: Sulfamethoxazole trimethoprim General: patient denies fever, fatigue, weaknes, sweating, any recent changes in appetite and weight HEENT: No headaches, visiual changes, hearing loss, tinnitus, nasal congestion and discharge, and sore throat. Cardiovascular: Denies chest pain, palpitations, dyspnea on exertion, orthopnea, or claudication. Respiratory: No cough, and wheezing. Gastrointestinal: Denies nausea, vomiting, dysphagia, odynophagia, heartburn, abdominal pain, flatulence, bloating, diarrhea, constipation, change in stool, or blood in stool. Genitourinary: No dysuria, hematuria, discharge, frequency, urgency, nocturia, incontinence, and urinary retention. Endocrine: No heat or cold intolerance, polydipsia, polyuria, and polyphagia. Neurological: No dizziness, extremity weakness and numbness, tremors, gait disturbance, seizures, and memory impairment. Psychiatric: Denies depression, anxiety,or insomnia. Musculoskeletal: Mild pain on her right knee. Inability to stay on feet Skin: No rashes, itching, skin lesion, changes in hair, nail, skin texture and breast. Hematologic/Lymphatic: Denies easy bruising, bleeding tendencies, or lymph node enlargement. Objective vital signs Vital Sign Date Time Temp Pulse Resp B/P (MAP) Pulse Ox O2 Delivery O2 Flow Rate FiO2 09/28/24 17:00 97.9 105 17 120/67 (84) 98 97.9 8/21/25 08:00 Room Air* 0 21 Total Intake and Output 09/27/24 09/27/24 09/28/24 15:00 23:00 07:00 Intake Total 50 ml 575 ml Output Total 800 ml Balance 50 ml -225 ml medications Current Medications Medications Dose Ordered Sig/Kaitlin Route Start Time Stop Time Status Last Admin Dose Admin Sodium Chloride 10 ml Q8HR IV 09/27/24 22:00 09/28/24 14:00 10 ML Docusate Sodium 100 mg BIDPRN PRN PO 09/27/24 16:30 Acetaminophen 650 mg Q6HP PRN PO 09/27/24 16:30 Acetaminophen/ Hydrocodone Bitart 1 tab Q4HP PRN PO 09/27/24 16:30 09/28/24 11:19 1 TAB Hydromorphone HCl 0.5 mg Q4HP PRN IV 09/27/24 16:30 Cefazolin Sodium 50 ml @ 100 mls/hr Q8HR IV 09/27/24 22:00 09/28/24 14:00 100 MLS/HR Atorvastatin Calcium 40 mg HS PO 09/28/24 22:00 Examination General Appearance: Alert, Oriented X3, Cooperative, No acute distress HEENT: Atraumatic, PERRLA, EOMI, Mucous membrane moist/pink Respiratory: Clear to auscultation, Normal air movement Cardiovascular: Regular rate, Normal S1, Normal S2, No murmurs, no chest wall tenderness Abdominal: Normal bowel sounds, Soft, No tenderness, No hepatospenomegaly, No masses Extremities: Tenderness to right knee. Decreased strength of bilateral lower limbs Skin: No rashes, No breakdown, No significant lesion Neuro: Normal gait, Normal speech, Strength at 5/5 X4 ext, Normal tone, Sensation intact, Cranial nerves 3-12 NL, Reflexes 2+ Psych/Mental Status: Mental status NL, Mood NL laboratory and microbiology Laboratory Tests 09/28/24 07:04 Test 09/28/24 07:04 Range/Units Serum Glucose 115 H 74-106 mg/dL Problem List/Assessment/Plan Problem List/Assessment/Plan Right patellar comminuted and displaced fracture Scheduled for surgery by Orthopedics tomorrow CT right knee, x-ray right knee revealed the fracture HIV on treatment. Plan discussed with: Patient Date of Service: Sep 28, 2024 Billing Provider: WOODROW MEJIA MD Common Visit Codes: [id number] INP/OBS CARE(HIGH) KRISTINE TIMMONS RESIDENT Sep 28, 2024 19:30 WOODROW MEJIA MD Oct 05, 2024 21:39
[2024-09-28] MEDS ORDERED: MELATONIN 5 MG TAB PO ONE (22:00)
[2024-09-28] MEDS: ATORVASTATIN 20 MG TAB PO SCH (22:30)
[2024-09-28] MEDS: HYDROmorphone HCL 2 MG/ML VL/or syr IV PRN (22:30)
--- NOTE | 2024-09-28 23:39 | DVHINCON2 ---
Date Seen: Sep 28, 2024 Referring Physician MD Adelso Reason for Consultation Cardiac risk stratification History of Present Illness This is a 64-year-old male with a past medical history of coronary artery disease status post PTCA x 2 ALFONSO (on ASA), hypertension, dyslipidemia, and HIV who presents to ED status post mechanical fall at home. Cardiology has been consulted at this time for cardiac risk stratification. Right femur x-ray has revealed a displaced comminuted mid right patellar pole fracture. Initial twelve lead electrocardiogram reveals normal sinus rhythm without any significant ST segment changes. The patient denies any cardiac symptoms such as chest pain, shortness of breath, or palpitations. Troponin levels have been negative. The patient denies following up with a hardwood floor refinisher in the outpatient setting. Past Medical History Past medical history reviewed. No other significant than mentioned above. Past Surgical History PTCA times two ALFONSO approximately five years ago Family History: Patient reports no known family medical history. Allergies: Coded Allergies: Sulfamethoxazole w/Trimethoprim (Verified Allergy, Unknown, 01/25/19) Home Meds Unable to Obtain Active Prescriptions or Reported Meds Current Medications Current Medications Medications (Trade) Dose Ordered Sig/Kaitlin Route PRN Reason Start Time Stop Time Status Last Admin Sodium Chloride (Saline Lock Ns) 10 ml Q8HR IV 09/27/24 22:00 09/28/24 05:45 Docusate Sodium (Colace Capsule) 100 mg BIDPRN PRN PO FOR CONSTIPATION 09/27/24 16:30 Acetaminophen (Tylenol Tablet) 650 mg Q6HP PRN PO PAIN SCALE 1-3 OR TEMP>100.4 09/27/24 16:30 Acetaminophen/ Hydrocodone Bitart ([place] 5/325MG Tab) 1 tab Q4HP PRN PO MODERATE PAIN (4-6 PAIN SCALE) 09/27/24 16:30 09/28/24 11:19 Hydromorphone HCl (Dilaudid Injection) 0.5 mg Q4HP PRN IV SEVERE PAIN (7-10 PAIN SCALE) 09/27/24 16:30 Cefazolin Sodium 50 ml @ 100 mls/hr Q8HR IV 09/27/24 22:00 09/28/24 05:34 Review of Systems Constitutional: No symptom reported Ears, Nose, & Throat: No symptom reported Eyes: No symptom reported Neurological: No symptoms reported Pulmonary/Respiratory: No symptoms reported Cardiovascular: No symptom reported Gastrointestinal: No symptom reported Genitourinary: No symptom reported Musculoskeletal: Bilateral knee pain Skin: No symptom reported Psychiatric: No symptom reported Endocrine: No symptom reported Hematologic/Lymphatic: No symptom reported Vital Signs Vital Signs Date Time Temp Pulse Resp B/P (MAP) Pulse Ox O2 Delivery O2 Flow Rate FiO2 09/28/24 09:00 98.1 89 17 98/59 (72) 99 98.1 09/28/24 08:00 Room Air* 0 21 Physical Exam GENERAL: Alert and oriented x 3. No acute distress. EYES: PERRL, EOMI. Anicteric. HENT: Moist mucous membranes. LUNGS: Clear to auscultation bilaterally. CARDIOVASCULAR: Regular rate and rhythm. ABDOMEN: Soft, nontender and nondistended. EXTREMITIES: No edema. NEUROLOGIC: No focal neurological deficits. SKIN: Warm, dry. Right knee ecchymosis. Labs/Diagnostic Data Labs Test 09/28/24 07:04 09/27/24 11:58 09/27/24 11:00 Range/Units White Blood Count 9.0 # 4.4-10.8 10^3/uL Red Blood Count 3.04 L 4.5-5.90 10^6/uL Hemoglobin 9.3 L 13.5-17.5 g/dL Hematocrit 27.7 L 41.0-53.0 % Mean Corpuscular Volume 91.2 80.0-100.0 fL Mean Corpuscular Hemoglobin 30.6 28.0-32.0 pg Mean Corpuscular Hemoglobin Concent 33.5 32.0-36.0 g/dL Red Cell Distribution Width 14.2 11.8-14.3 % Platelet Count 176 140-450 10^3/uL Mean Platelet Volume 7.9 6.9-10.8 fL Neutrophils (%) (Auto) 65.5 37.0-80.0 % Lymphocytes (%) (Auto) 19.0 10.0-50.0 % Monocytes (%) (Auto) 14.0 H 0.0-12.0 % Eosinophils (%) (Auto) 0.9 0.0-7.0 % Basophils (%) (Auto) 0.6 0.0-2.0 % Neutrophils # (Auto) 5.9 1.6-8.6 10 ^3/uL Lymphocytes # (Auto) 1.7 0.4-5.4 10 ^3/uL Monocytes # (Auto) 1.3 0-1.3 10 ^3/uL Eosinophils # (Auto) 0.1 0-0.8 10 ^3/uL Basophils # (Auto) 0.1 0-0.2 10 ^3/uL Nucleated Red Blood Cells 0.1 % Sodium Level 137 136-145 mmol/L Potassium Level 4.1 3.5-5.1 mmol/L Chloride Level 106 98-107 mmol/L Carbon Dioxide Level 20 20-31 mmol/L Anion Gap 11 5-15 Blood Urea Nitrogen 25 H 9-23 mg/dL Creatinine 1.00 0.700-1.30 mg/dL Glomerular Filtration Rate Calc 83 >90 mL/min BUN/Creatinine Ratio 25.0 H 10.0-20.0 Serum Glucose 115 H 74-106 mg/dL Calcium Level 8.9 8.7-10.4 mg/dL Total Bilirubin 0.6 0.2-1.0 mg/dL Aspartate Amino Transferase (AST) 59 H 13-40 U/L Alanine Aminotransferase (ALT) 20 7-40 U/L Alkaline Phosphatase 67 46-116 U/L Total Protein 6.1 5.7-8.2 g/dL Albumin 4.0 3.2-4.8 g/dL Troponin I High Sensitivity 5 </=54 ng/L Prothrombin Time 10.6 9.3-11.8 sec Prothrombin Time INR 1.00 0.9-1.15 Activated Partial Thromboplast Time 24.5 24.5-34.5 SEC Assessment Preprocedural cardiovascular examination. Acute right patellar pole fracture. Coronary artery disease status post PTCA x 2 ALFONSO 9 (on ASA). Hypertension. Dyslipidemia. HIV. Plan/Recommendation I agree with your ongoing assessment and care of plan. Patient has been seen by Annelise Ramos NP on my behalf, her and I discussed the plan with the patient. Transthoracic echocardiogram reveals an EF of 60% with normal valves. A chest x-ray done on this admission reveals no acute disease. Revised Cardiac Risk Index (Adelso criteria): 1 point (1.1% risk of major cardiac event). The patient has no underlying history of congestive heart failure. He does mention a history of coronary artery disease in which he has two drug- eluting stents (placed over 5 years ago per patient). He should continue with single antiplatelet therapy and lipid-lowering agent. Prior to this admission, the patient reports a good functional capacity. Per Cardiology standpoint, the patient is at an acceptable risk for moderate risk surgery. There is no additional cardiac workup indicated prior to surgery. Additional plan as per the hospital course. Plan discussed with: Patient NYHA Physical activity limitations: NA Date of Service: Sep 28, 2024 Billing Provider: YURIDIA BECK MD Cardiology Common Codes: 85929-[id number] INP/OBS CARE (High) Cardiology Consultation Codes: 69309-[id number] CONSULT <45MIN YURIDIA BECK MD Sep 28, 2024 13:06
[2024-09-29] VITALS (7 sets, daily range): BP systolic 113–131; BP diastolic 65–70; PULSE 79–111; RESP 16–20; TEMP 98–98.2; O2SAT 96–100
--- NOTE | 2024-09-29 06:50 | DVHPN2 ---
Progress Note Date Seen: Sep 29, 2024 Medical Necessity Reason Pt with a Central, PICC or Fol: No Subjective Patient reports: No new complaints Objective vital signs Vital Sign Date Time Temp Pulse Resp B/P (MAP) Pulse Ox O2 Delivery O2 Flow Rate FiO2 09/29/24 05:00 98.1 111 19 113/65 (81) 96 98.1 09/28/24 20:00 Room Air* 0 21 Total Intake and Output 09/28/24 09/28/24 09/29/24 15:00 23:00 07:00 Intake Total 50 ml 1850 ml 400 ml Output Total 1000 ml 400 ml Balance 50 ml 850 ml 0 ml medications Current Medications Medications Dose Ordered Sig/Kaitlin Route Start Time Stop Time Status Last Admin Dose Admin Sodium Chloride 10 ml Q8HR IV 09/27/24 22:00 09/29/24 05:26 10 ML Docusate Sodium 100 mg BIDPRN PRN PO 09/27/24 16:30 Acetaminophen 650 mg Q6HP PRN PO 09/27/24 16:30 Acetaminophen/ Hydrocodone Bitart 1 tab Q4HP PRN PO 09/27/24 16:30 09/28/24 11:19 1 TAB Hydromorphone HCl 0.5 mg Q4HP PRN IV 09/27/24 16:30 09/28/24 22:30 0.5 MG Cefazolin Sodium 50 ml @ 100 mls/hr Q8HR IV 09/27/24 22:00 09/29/24 05:26 100 MLS/HR Atorvastatin Calcium 40 mg HS PO 09/28/24 22:00 09/28/24 22:30 40 MG Examination: MSK:Abnormal laboratory and microbiology Laboratory Tests 09/28/24 07:04 Test 09/28/24 07:04 Range/Units Serum Glucose 115 H 74-106 mg/dL Problem List/Assessment/Plan Problem List/Assessment/Plan 64 yo M with right patella fracture/ HIV uncontrolled 1. At this point patient knee is too swollen for surgery today; we will need to wait 5-7 days for hematoma to decrease to avoid soft tissue breakdown/wound issues 2. WBAT in knee immobilizer with walker 3. We can do this as outpatient if patient able to go home; follow up with orthopedics on wednesday in [facility] ortho clinic 4. pain control Plan discussed with: Patient My Orders My Orders Orders - JEANNINE HERNÁNDEZ MD Procedure Category Date Status Time Cardiac DIET 09/29/24 Transmitted Diet-2gna,Lofat,Lochol Breakfast JEANNINE HERNÁNDEZ MD Sep 29, 2024 06:50
[2024-09-29 07:37] LABS: Hematocrit 26.3 % (41.0-53.0); Hemoglobin 8.8 g/dL (13.5-17.5); Mean Corpuscular Hemoglobin 30.8 pg (28.0-32.0); Mean Corpuscular Volume 91.6 fL (80.0-100.0); Nucleated Red Blood Cells % 0.0 %
[2024-09-29 08:02] LABS: Alanine Aminotransferase 18 U/L (7-40); Albumin 4.0 g/dL (3.2-4.8); Alkaline Phosphatase 70 U/L (46-116); Anion Gap 10 (5-15); BUN/Creatinine Ratio 18.4 (10.0-20.0); Blood Urea Nitrogen 16 mg/dL (9-23); Calcium 8.8 mg/dL (8.7-10.4); Carbon Dioxide 22 mmol/L (20-31); Chloride 105 mmol/L (98-107); Potassium 3.8 mmol/L (3.5-5.1); Sodium 137 mmol/L (136-145); Total Protein 6.1 g/dL (5.7-8.2)
[2024-09-29 08:03] LABS: Bilirubin, Total 0.7 mg/dL (0.2-1.0)
[2024-09-29 08:09] LABS: Glucose 122 mg/dL (74-106)
--- NOTE | 2024-09-29 17:23 | DVHDSRES ---
Discharge Summary Date of Admission Resident Creating Document: KRISTINE TIMMONS RESIDENT Sep 27, 2024 at 16:27 Date of Discharge: Sep 29, 2024 Admitting Diagnosis Right patellar fracture Labs/Diagnostic Data: Laboratory Results Test 09/29/24 07:06 09/28/24 19:26 09/28/24 07:04 09/27/24 11:58 White Blood Count 7.2 10^3/uL (4.4-10.8) Red Blood Count 2.87 10^6/uL (4.5-5.90) Hemoglobin 8.8 g/dL (13.5-17.5) Hematocrit 26.3 % (41.0-53.0) Mean Corpuscular Volume 91.6 fL (80.0-100.0) Mean Corpuscular Hemoglobin 30.8 pg (28.0-32.0) Mean Corpuscular Hemoglobin Concent 33.6 g/dL (32.0-36.0) Red Cell Distribution Width 13.9 % (11.8-14.3) Platelet Count 192 10^3/uL (140-450) Mean Platelet Volume 7.3 fL (6.9-10.8) Neutrophils (%) (Auto) 68.2 % (37.0-80.0) Lymphocytes (%) (Auto) 17.3 % (10.0-50.0) Monocytes (%) (Auto) 13.0 % (0.0-12.0) Eosinophils (%) (Auto) 1.0 % (0.0-7.0) Basophils (%) (Auto) 0.5 % (0.0-2.0) Neutrophils # (Auto) 4.9 10 ^3/uL (1.6-8.6) Lymphocytes # (Auto) 1.2 10 ^3/uL (0.4-5.4) Monocytes # (Auto) 0.9 10 ^3/uL (0-1.3) Eosinophils # (Auto) 0.1 10 ^3/uL (0-0.8) Basophils # (Auto) 0 10 ^3/uL (0-0.2) Nucleated Red Blood Cells 0.0 % Sodium Level 137 mmol/L (136-145) Potassium Level 3.8 mmol/L (3.5-5.1) Chloride Level 105 mmol/L (98-107) Carbon Dioxide Level 22 mmol/L (20-31) Anion Gap 10 (5-15) Blood Urea Nitrogen 16 mg/dL (9-23) Creatinine 0.87 mg/dL (0.700-1.30) Glomerular Filtration Rate Calc 95 mL/min (>90) BUN/Creatinine Ratio 18.4 (10.0-20.0) Serum Glucose 122 mg/dL (74-106) Calcium Level 8.8 mg/dL (8.7-10.4) Total Bilirubin 0.7 mg/dL (0.2-1.0) Aspartate Amino Transferase (AST) 47 U/L (13-40) Alanine Aminotransferase (ALT) 18 U/L (7-40) Alkaline Phosphatase 70 U/L (46-116) Total Protein 6.1 g/dL (5.7-8.2) Albumin 4.0 g/dL (3.2-4.8) Troponin I High Sensitivity 5 ng/L (</=54) Test 09/27/24 11:00 Prothrombin Time 10.6 sec (9.3-11.8) Prothrombin Time INR 1.00 (0.9-1.15) Activated Partial Thromboplast Time 24.5 SEC (24.5-34.5) Other Laboratory Tests 09/29/24 07:06 Brief Hx & Hospital Course: 64-year-old male patient with history of hypertension and HIV presented to the hospital with complaints of pain and swelling and bruising in the right knee and swelling in the left knee. Patient says he was at his home the when he suddenly felt his legs gave up and he fell down on the floor. He had a loss of consciousness post 2 seconds according to the patient. The patient could not stand up or get to his phone for 2 days and was found in his home on the floor. On admission x-ray and CT was done on the right knee which showed comminuted displaced patellar fracture. EKG showed sinus rhythm. Patient was scheduled for surgery in the next day. But the patient had hematoma around the joint making it difficult to do the surgery. The surgery is being postponed 5 to 7 days for the swelling to subside. The patient is being discharged now for follow-up surgery in a week. Condition at Discharge: Good Final Diagnosis/Problems List Mechanical fall Comminuted fracture of the right patella Fracture of left femoral condyle HIV on meds Discharge Disposition: Halfway Facility Discharge Instruct/Medications Diet: Cardiac 2g Na,low cholest Activity: No Restrictions, As Tolerated Follow Up/Referral: Please follow up with PCP after discharge Please follow up with Orthopedics for surgical management Medications: as per EHR Unable to Obtain Active Prescriptions or Reported Meds Discharge Statement: "Patient was advised to return to the ER or call 911 if any headaches, dizziness, shortness of breath, chest pain, abdominal pain, bleeding, fevers, or worsening of medical condition. Patient was counseled about treatment plan, medications, possible side effects, patientverbalized understanding. All questions were answered to the best of my ability. This discharge took greater then 30 minutes in planning, reviewing documentation, counseling the patient, and discussing with other team members." ASSESSMENT ASSESSMENT Assessment Mechanical fall b/l lower limb fracture HIV on meds Date of Service: Sep 29, 2024 Billing Provider: WOODROW MEJIA MD Common Visit Codes: [id number]-ETQ/OBS DISCH DAY >30min KRISTINE TIMMONS RESIDENT Sep 29, 2024 17:23 WOODROW MEJIA MD Oct 05, 2024 22:15
--- NOTE | 2024-09-29 19:35 | DVHPN2 ---
Progress Note - Dictate Date Seen: Sep 29, 2024 Medical Necessity Reason Pt with a Central, PICC or Fol: No Subjective Patient was seen and evaluated in follow up. Patient is complaining of knee pain. Per Dr. Golden, the patients knee is too swollen to proceed with surgery today. Will need to wait 5-7 days for hematoma to decrease to avoid soft tissue breakdown/wound issues. HGB 8.8, HCT 26.3. vital signs Vital Sign Date Time Temp Pulse Resp B/P (MAP) Pulse Ox O2 Delivery O2 Flow Rate FiO2 09/29/24 17:03 98.2 97 17 131/69 (89) 100 98.2 09/29/24 08:00 Room Air* 0 21 Total Intake and Output 09/28/24 09/28/24 09/29/24 15:00 23:00 07:00 Intake Total 50 ml 1850 ml 450 ml Output Total 1000 ml 400 ml Balance 50 ml 850 ml 50 ml medications Current Medications Medications Dose Ordered Sig/Kaitlin Route Start Time Stop Time Status Last Admin Dose Admin Sodium Chloride 10 ml Q8HR IV 09/27/24 22:00 09/29/24 14:23 10 ML Docusate Sodium 100 mg BIDPRN PRN PO 09/27/24 16:30 Acetaminophen 650 mg Q6HP PRN PO 09/27/24 16:30 Acetaminophen/ Hydrocodone Bitart 1 tab Q4HP PRN PO 09/27/24 16:30 09/28/24 11:19 1 TAB Hydromorphone HCl 0.5 mg Q4HP PRN IV 09/27/24 16:30 09/28/24 22:30 0.5 MG Cefazolin Sodium 50 ml @ 100 mls/hr Q8HR IV 09/27/24 22:00 09/29/24 14:29 100 MLS/HR Atorvastatin Calcium 40 mg HS PO 09/28/24 22:00 09/28/24 22:30 40 MG objective GENERAL: Alert and oriented x 3. No acute distress. EYES: PERRL, EOMI. Anicteric. HENT: Moist mucous membranes. LUNGS: Clear to auscultation bilaterally. CARDIOVASCULAR: Regular rate and rhythm. ABDOMEN: Soft, nontender and nondistended. EXTREMITIES: No edema. NEUROLOGIC: No focal neurological deficits. SKIN: Warm, dry. Right knee ecchymosis. laboratory and microbiology Laboratory Tests 8/22/25 07:06 Test 09/29/24 07:06 Range/Units Serum Glucose 122 H 74-106 mg/dL Problem List Preprocedural cardiovascular examination. Acute right patellar pole fracture. Coronary artery disease status post PTCA x 2 ALFONSO 9 (on ASA). Hypertension. Dyslipidemia. HIV. Assessment/Plan Continued all current supportive medical care. Dilaudid and [place] for pain management. Lipitor. IV antibiotics as ordered. Additional plan as per the hospital course. Plan discussed with: Patient YURIDIA BECK MD Sep 29, 2024 18:09
--- NOTE | 2024-09-29 23:29 | DVHPN2 ---
Consult Progress Note Objective vital signs Vital Sign Date Time Temp Pulse Resp B/P (MAP) Pulse Ox O2 Delivery O2 Flow Rate FiO2 09/29/24 21:43 89 18 118/70 09/29/24 21:09 98.1 100 98.1 09/29/24 08:00 Room Air* 0 21 Total Intake and Output 09/28/24 09/28/24 09/29/24 15:00 23:00 07:00 Intake Total 50 ml 1850 ml 450 ml Output Total 1000 ml 400 ml Balance 50 ml 850 ml 50 ml medications Current Medications Medications Dose Ordered Sig/Kaitlin Route Start Time Stop Time Status Last Admin Dose Admin Sodium Chloride 10 ml Q8HR IV 09/27/24 22:00 09/29/24 21:43 10 ML Docusate Sodium 100 mg BIDPRN PRN PO 09/27/24 16:30 Acetaminophen 650 mg Q6HP PRN PO 09/27/24 16:30 Acetaminophen/ Hydrocodone Bitart 1 tab Q4HP PRN PO 09/27/24 16:30 09/29/24 18:49 1 TAB Hydromorphone HCl 0.5 mg Q4HP PRN IV 09/27/24 16:30 09/29/24 21:43 0.5 MG Cefazolin Sodium 50 ml @ 100 mls/hr Q8HR IV 09/27/24 22:00 09/29/24 21:41 100 MLS/HR Atorvastatin Calcium 40 mg HS PO 09/28/24 22:00 09/29/24 21:41 40 MG laboratory and microbiology Laboratory Tests 09/29/24 07:06 Test 09/29/24 07:06 Range/Units Serum Glucose 122 H 74-106 mg/dL CONNER JONAS MD Sep 29, 2024 23:29
[2024-09-30 01:00] VITALS: BP 120/73; PULSE 91; RESP 20; TEMP 98.1; O2SAT 97
[2024-09-30 05:22] VITALS: BP 124/74; PULSE 91; RESP 20; TEMP 98.1; O2SAT 99
[2024-09-30 07:07] LABS: Hematocrit 26.8 % (37.5-51.0); Hemoglobin 8.7 g/dL (13.0-17.7); MCH 31.4 pg (26.6-33.0); MCHC 32.5 g/dL (31.5-35.7); MCV 97 fL (79-97); RBC 2.77 x10E6/uL (4.14-5.80); RDW 13.6 % (11.6-15.4); WBC 8.7 x10E3/uL (3.4-10.8)
[2024-09-30 07:18] LABS: Hematocrit 26.0 % (41.0-53.0); Hemoglobin 8.8 g/dL (13.5-17.5); Mean Corpuscular Hemoglobin 31.4 pg (28.0-32.0); Mean Corpuscular Volume 92.8 fL (80.0-100.0); Nucleated Red Blood Cells % 0.1 %
[2024-09-30 07:40] LABS: Alanine Aminotransferase 17 U/L (7-40); Alkaline Phosphatase 68 U/L (46-116); Calcium 8.8 mg/dL (8.7-10.4); Carbon Dioxide 23 mmol/L (20-31); Chloride 106 mmol/L (98-107)
[2024-09-30 07:41] LABS: Albumin 3.9 g/dL (3.2-4.8); Anion Gap 9 (5-15); BUN/Creatinine Ratio 16.7 (10.0-20.0); Bilirubin, Total 0.7 mg/dL (0.2-1.0); Blood Urea Nitrogen 14 mg/dL (9-23); Potassium 4.0 mmol/L (3.5-5.1); Sodium 138 mmol/L (136-145); Total Protein 6.0 g/dL (5.7-8.2)
[2024-09-30 07:43] LABS: Glucose 112 mg/dL (74-106)
[2024-09-30 08:00] VITALS: BP 118/87; PULSE 82; RESP 18; TEMP 98; O2SAT 100
--- NOTE | 2024-09-30 11:25 | DVHPNRES ---
Progress Note Date Seen: Sep 30, 2024 Resident Creating Document: KRISTINE TIMMONS Medical Necessity Reason Pt with a Central, PICC or Fol: No Subjective Review of Systems Patient seen at bedside. Patient was discharged yesterday. But could not find placement in intermediate facility. Swelling of bilateral knees improving. Objective vital signs Vital Sign Date Time Temp Pulse Resp B/P (MAP) Pulse Ox O2 Delivery O2 Flow Rate FiO2 09/30/24 08:00 98.0 82 18 118/87 (97) 100 98.0 09/30/24 08:00 Room Air* 0 21 Total Intake and Output 09/29/24 09/29/24 09/30/24 15:00 23:00 07:00 Intake Total 50 ml 1250 ml 950 ml Output Total 1400 ml Balance 50 ml 1250 ml -450 ml medications Current Medications Medications Dose Ordered Sig/Kaitlin Route Start Time Stop Time Status Last Admin Dose Admin Sodium Chloride 10 ml Q8HR IV 09/27/24 22:00 09/30/24 06:18 10 ML Docusate Sodium 100 mg BIDPRN PRN PO 09/27/24 16:30 Acetaminophen 650 mg Q6HP PRN PO 09/27/24 16:30 Acetaminophen/ Hydrocodone Bitart 1 tab Q4HP PRN PO 09/27/24 16:30 09/29/24 18:49 1 TAB Hydromorphone HCl 0.5 mg Q4HP PRN IV 09/27/24 16:30 09/29/24 21:43 0.5 MG Cefazolin Sodium 50 ml @ 100 mls/hr Q8HR IV 09/27/24 22:00 09/30/24 06:18 100 MLS/HR Atorvastatin Calcium 40 mg HS PO 09/28/24 22:00 09/29/24 21:41 40 MG Examination General Appearance: Alert, Oriented X3, Cooperative, No acute distress HEENT: Atraumatic, PERRLA, EOMI, Mucous membrane moist/pink Respiratory: Clear to auscultation, Normal air movement Cardiovascular: Regular rate, Normal S1, Normal S2, No murmurs, no chest wall tenderness Abdominal: Normal bowel sounds, Soft, No tenderness, No hepatospenomegaly, No masses Extremities: Tenderness to right knee. Skin: No rashes, No breakdown, No significant lesion Neuro: Normal gait, Normal speech, Strength at 5/5 X4 ext, Normal tone, Sensation intact, Cranial nerves 3-12 NL, Reflexes 2+ Psych/Mental Status: Mental status NL, Mood NL laboratory and microbiology Laboratory Tests 09/30/24 06:00 Test 09/30/24 06:00 Range/Units Serum Glucose 112 H 74-106 mg/dL Problem List/Assessment/Plan Problem List/Assessment/Plan Mechanical fall Comminuted fracture of the right patella Fracture of left femoral condyle HIV on meds Plan discussed with: Patient Date of Service: Sep 30, 2024 Billing Provider: WOODROW MEJIA MD Common Visit Codes: [id number] INP/OBS CARE(HIGH) KRISTINE TIMMONS RESIDENT Sep 30, 2024 11:25 WOODROW MEJIA MD Oct 05, 2024 22:17
[2024-09-30 12:00] VITALS: BP 105/84; PULSE 109; RESP 18; TEMP 98.2; O2SAT 96
[2024-09-30 13:07] LABS: CD4/CD8 Ratio 0.53 (0.92-3.72)
[2024-09-30 14:33] VITALS: BP 118/87; PULSE 82; RESP 18; TEMP 98.6; O2SAT 100
[2024-09-30 16:00] VITALS: BP 110/59; PULSE 89; RESP 18; TEMP 99.2; O2SAT 99
--- NOTE | 2024-09-30 23:12 | DVHPN2 ---
Progress Note - Dictate Date Seen: Sep 30, 2024 Medical Necessity Reason Pt with a Central, PICC or Fol: No Subjective Patient was seen and evaluated in follow up. Patient has no new complaints at this time. Patient denies any cardiac symptoms. Pending SNF placement. Patient is cardiac stable for discharge. vital signs Vital Sign Date Time Temp Pulse Resp B/P (MAP) Pulse Ox O2 Delivery O2 Flow Rate FiO2 09/30/24 08:00 98.0 82 18 118/87 (97) 100 98.0 09/30/24 08:00 Room Air* 0 21 Total Intake and Output 09/29/24 09/29/24 09/30/24 15:00 23:00 07:00 Intake Total 50 ml 1250 ml 950 ml Output Total 1400 ml Balance 50 ml 1250 ml -450 ml medications Current Medications Medications Dose Ordered Sig/Kaitlin Route Start Time Stop Time Status Last Admin Dose Admin Sodium Chloride 10 ml Q8HR IV 09/27/24 22:00 09/30/24 06:18 10 ML Docusate Sodium 100 mg BIDPRN PRN PO 09/27/24 16:30 Acetaminophen 650 mg Q6HP PRN PO 09/27/24 16:30 Acetaminophen/ Hydrocodone Bitart 1 tab Q4HP PRN PO 09/27/24 16:30 09/29/24 18:49 1 TAB Hydromorphone HCl 0.5 mg Q4HP PRN IV 09/27/24 16:30 09/29/24 21:43 0.5 MG Cefazolin Sodium 50 ml @ 100 mls/hr Q8HR IV 09/27/24 22:00 09/30/24 06:18 100 MLS/HR Atorvastatin Calcium 40 mg HS PO 09/28/24 22:00 09/29/24 21:41 40 MG objective GENERAL: Alert and oriented x 3. No acute distress. EYES: PERRL, EOMI. Anicteric. HENT: Moist mucous membranes. LUNGS: Clear to auscultation bilaterally. CARDIOVASCULAR: Regular rate and rhythm. ABDOMEN: Soft, nontender and nondistended. EXTREMITIES: No edema. NEUROLOGIC: No focal neurological deficits. SKIN: Warm, dry. Right knee ecchymosis. laboratory and microbiology Laboratory Tests 09/30/24 06:00 Test 09/30/24 06:00 Range/Units Serum Glucose 112 H 74-106 mg/dL Problem List Preprocedural cardiovascular examination. Acute right patellar pole fracture. Coronary artery disease status post PTCA x 2 ALFONSO 9 (on ASA). Hypertension. Dyslipidemia. HIV. Assessment/Plan Continued all current supportive medical care. Tylenol for pain management. IV antibiotics as ordered. Additional plan as per the hospital course. Plan discussed with: Patient YURIDIA BECK MD Sep 30, 2024 12:40
[2024-10-02 11:18] LABS: Hepatitis B Surface Antigen Negative (Negative); Hepatitis C Antibody Negative (Negative)
== END 2024-09-30 17:25 | DRG 562 ==
LOC: ER 09:48 → EDUNIT# 09:48 → EDBD 09:48 → OVERFLOW 16:27 → WEST WING 20:55
PROVIDERS: ADMIT Student in an Organized Health Care Education/Training Program; ATTEND Internal Medicine
DX: S82.041A Displaced comminuted fracture of right patella, initial encounter for closed fracture (principal); N17.0 Acute kidney failure with tubular necrosis; S72.422A Displaced fracture of lateral condyle of left femur, initial encounter for closed fracture; I12.9 Hypertensive chronic kidney disease with stage 1 through stage 4 chronic kidney disease, or unspecified chronic kidney disease; D64.9 Anemia, unspecified; N18.9 Chronic kidney disease, unspecified; I25.10 Atherosclerotic heart disease of native coronary artery without angina pectoris; E78.5 Hyperlipidemia, unspecified; D72.829 Elevated white blood cell count, unspecified; Z79.899 Other long term (current) drug therapy; Z95.5 Presence of coronary angioplasty implant and graft; Z88.3 Allergy status to other anti-infective agents; Z88.1 Allergy status to other antibiotic agents; W18.39XA Other fall on same level, initial encounter; Y93.01 Activity, walking, marching and hiking; Y92.090 Kitchen in other non-institutional residence as the place of occurrence of the external cause; Y99.8 Other external cause status; Z88.2 Allergy status to sulfonamides
CPT/HCPCS: 36415; 71045; 73560; 73564; 73700; 80048; 80053; 84484; 85025; 85610; 85730; 86360; 86803; 86850; 86900; 86901; 87340; 93005; 93306; 96365; 97110; 97116; 97163; 97530; 99291; G0378